=== PATIENT | male | born 1945 | race Caucasian/White ===

== ENCOUNTER 2019-04-15 12:44 | Inpatient (IN) | payer MEDICARE, OTHER ==
[~2019-04-15] VITALS: Ht 170.2 cm; Wt 71.8 kg
[2019-04-15 13:31] LABS: BASOPHILS ABSOLUTE AUTO 0.07 K/mm3 (0.00-0.23); BASOPHILS PERCENT AUTO 1 % (0-2); EOSINOPHILS PERCENT AUTO 0 % (0-6); Hematocrit 42.8 % (37.0-53.0); Hemoglobin 13.5 g/dL (13.5-17.5); IMMATURE GRAN ABSOLUTE AUTO 0.01 K/mm3 (0.00-0.10); IMMATURE GRAN PERCENT AUTO 0 % (0-1); LYMPHOCYTES PERCENT AUTO 15 % (21-46); MONOCYTES ABSOLUTE AUTO 0.61 K/mm3 (0.16-1.47); MONOCYTES PERCENT AUTO 10 % (4-13); Mean Corpuscular HGB 33.2 pg (26.0-34.0); Mean Corpuscular HGB Conc 31.5 g/dL (31.5-36.5); Mean Corpuscular Volume 105 fL (80-100); Mean Platelet Volume 9.9 fL (9.1-12.4); NEUTROPHILS ABSOLUTE AUTO 4.42 K/mm3 (1.96-9.15); NEUTROPHILS PERCENT AUTO 74 % (41-73); Platelet Count 162 K/mm3 (150-400); RDW Coefficient Variation 13.5 % (11.7-14.2); RDW Standard Deviation 53.5 fL (35.1-46.3); Red Blood Cell Count 4.07 M/mm3 (4.30-5.90); White Blood Cell Count 6.01 K/mm3 (4.00-11.30)
[2019-04-15 13:57] LABS: Albumin, Blood 3.7 g/dL (3.4-5.0); Albumin/Globulin Ratio 1.1 (0.8-1.8); Bilirubin, Total 1.3 mg/dL (0.1-1.0); Bun/Creatinine Ratio 20.4 (12.0-20.0); Creatinine, Blood 1.47 mg/dL (0.60-1.20); Globulin, Blood 3.4 g/dL (2.2-4.0); Potassium, Blood 3.9 mmol/L (3.5-5.5); Total Protein, Blood 7.1 g/dL (6.4-8.2); Troponin I 0.018 ng/mL (0.000-0.040)
[2019-04-15 15:52] LABS: International Normalized Ratio 2.65; Prothrombin Time Results 25.7 Sec (9.7-11.5)
[2019-04-15] MEDS ORDERED: Zantac150 MG PO (16:50)
[2019-04-15] MEDS ORDERED: CARDURA4 MG PO (16:50)
[2019-04-15] MEDS ORDERED: DULO30 PO (16:50)
[2019-04-15] MEDS ORDERED: Synthroid88 MCG PO (16:52)
[2019-04-15] MEDS ORDERED: WARF5 PO (16:53)
[2019-04-15 16:54] LABS: Free Thyroxine 1.44 ng/dL (0.70-1.60)
[2019-04-15 16:57] LABS: Thyroid Stimulating Hormone 4.34 uIU/mL (0.360-4.800)
[2019-04-15] MEDS ORDERED: Bisoprolol Fumar5 MG PO (16:57)
--- NOTE | 2019-04-16 03:03 | NUR ---
SHIFT SUMMARY: 73 Y/O RESTED COMFORTABLY SUPINE POSITION (FEELS MOST COMFORTABLY IN THIS POSITION), DENIES PAIN OR NAUSEA, TELEMETRY REFLECTS A/FIB WITH PVC AND HEART RATE 100 PER SHARRON KUMAR, BED LOW POSITION WITH CALL LIGHT AT SIDE.
[2019-04-16 03:55] LABS: Hematocrit 37.5 % (37.0-53.0); Hemoglobin 11.9 g/dL (13.5-17.5); Mean Corpuscular HGB 32.2 pg (26.0-34.0); Mean Corpuscular HGB Conc 31.7 g/dL (31.5-36.5); Mean Platelet Volume 10.4 fL (9.1-12.4); Platelet Count 139 K/mm3 (150-400); RDW Coefficient Variation 13.5 % (11.7-14.2); RDW Standard Deviation 50.7 fL (35.1-46.3); Red Blood Cell Count 3.69 M/mm3 (4.30-5.90); White Blood Cell Count 4.81 K/mm3 (4.00-11.30)
[2019-04-16 03:56] LABS: Mean Corpuscular Volume 102 fL (80-100)
[2019-04-16 04:09] LABS: Bun/Creatinine Ratio 22.4 (12.0-20.0); Calcium, Blood 8.5 mg/dL (8.5-10.1); Creatinine, Blood 1.56 mg/dL (0.60-1.20); International Normalized Ratio 2.88; Potassium, Blood 3.5 mmol/L (3.5-5.5); Prothrombin Time Results 27.7 Sec (9.7-11.5)
--- NOTE | 2019-04-16 08:01 | NUR ---
ASSUMED CARE AT 0330. NO COMPLAINTS NOTED PER TECH 11 BT RUN OF V TACH AT 0545. ASYMTOMATIC AND WAS ASLEEP. AF 90-100 AVERAGE
--- NOTE | 2019-04-16 08:34 | NUR ---
Echocardiogram completed.
--- NOTE | 2019-04-16 13:55 | NUR ---
Upon receiving an admit referral, I visited patient. Patient immediately shares about his health history, his 2 grown children, his family unit complications and his spiritual beliefs. Patient gives me a list of amazing events (almost miraculous) then tells me there is no God and nothing after . Patient shares personal stories of the pain and healing, of addiction and freedom and of seperation and connectiveness. I listen empathically, normalize patient experience, reinforce helpful attitudes and practices and provide companionship. Patient responds well and shows signs of an elevated mood. I will continue to remain available to patient and family.
--- NOTE | 2019-04-16 17:44 | NUR ---
SHIFT SUMMARY PT ALERT AND ORIENTED. VS STAVLE. HR HAS BEEN AFIB 80-100. BP STABLE. PT DENIES ANY CP/PRESSURE OR DIZZINESS. PT INDPENEDENT IN ROOM. METOPROLOL CHANGED TO 50MG BID TODAY. PT DENIES ANY OTHER NEEDS. PT COMPLAINS OF PAIN TO RIGHT SHOULDER AND NECK THAT WAS RELIEVED WITH MEDICAITON ADMINISTRATION. PT SITTING UP EATING DINNER. WILL CONTINUE TO MONITOR AND REPORT TO ONCOMING RN. CALL LIGHT IN REACH.
[2019-04-17 04:19] LABS: International Normalized Ratio 3.5; Prothrombin Time Results 33.1 Sec (9.7-11.5)
--- NOTE | 2019-04-17 05:28 | NUR ---
SHIFT SUMMARY PT SLEEPING IN ROOM COMFORTABLY AT THIS TIME. NO ACUTE CHANGES IN STATUS T/O NIGHT. PT SLEPT WELL, DENIED ANY NEEDS. DENIED ANY CP OR SOB T/O NIGHT. RESP EVEN UNLABORED ON RA W/ SDATS >92%. PT IS INDEPENDENT IN ROOM. BP WAS NOTED TO BE LOW AT STAR OF SHIFT, PT WAS UNSYMPTOMATIC, AND BP HAS SINCE INCREASED. CALL LIGHT IN REACH.
--- NOTE | 2019-04-17 10:18 | NUR ---
AM NOTE. ASSUMED CARE OF PT APROX 0700. PT IS A&Ox4 AND IND IN THE ROOM. PT WAS ADMITTED FOR AFIB RVR. PT'S VS STABLE. DENIES CHEST PAIN/PRESSURE, N/V OR SOB. NO EDEMA NOTED ON ASSESSMENT. PT IS IN AFIB IN THE 80'S-100'S PER CARDIO TECH. WILL CONTINUE TO MONITOR.
--- NOTE | 2019-04-17 17:55 | NUR ---
SHIFT SUMMARY. NO ACUTE CHANGES NOTED THIS SHIFT. PT'S VS HAVE BEEN STABLE. PT DENIES CHEST PAIN/PRESSURE, N/V OR SOB. PT HAS BEEN IND TO THE BATHROOM AND IN THE ROOM. PT HAD A NAP THIS AFTERNOON FOR SEVERAL HOURS. NO EVENTS NOTED ON TELE. CALL LIGHT IN REACH, BED IS LOCKED AND LOW WILL CONTINUE TO MONITOR UNTIL REPORT IS GIVEN TO ONCOMING RN.
--- NOTE | 2019-04-17 18:42 | NUR ---
PT UPDATE... PT STATED THAT HE HAD BEEN REFUSING TO USE THE URINAL TODAY AFTER THIS RN ASKED HIM TO USE IT THIS MORNING. PT STATED HE WAS "EMBARRASSED" TO USE IT. EDUCATION WAS PROVIDED TO THE PT ON THE IMPORTANCE OF STRICT I&O DURING DIURESING. PT STATED HIS UNDERSTANDING AND STATED HE WOULD USE IT "NEXT TIME"
[2019-04-18 05:25] LABS: BASOPHILS ABSOLUTE AUTO 0.07 K/mm3 (0.00-0.23); BASOPHILS PERCENT AUTO 1 % (0-2); EOSINOPHILS PERCENT AUTO 0 % (0-6); Hematocrit 38.8 % (37.0-53.0); Hemoglobin 12.6 g/dL (13.5-17.5); IMMATURE GRAN ABSOLUTE AUTO 0.01 K/mm3 (0.00-0.10); IMMATURE GRAN PERCENT AUTO 0 % (0-1); LYMPHOCYTES ABSOLUTE AUTO 1.23 K/mm3 (0.84-5.20); LYMPHOCYTES PERCENT AUTO 23 % (21-46); MONOCYTES ABSOLUTE AUTO 0.43 K/mm3 (0.16-1.47); MONOCYTES PERCENT AUTO 8 % (4-13); Mean Corpuscular HGB 32.6 pg (26.0-34.0); Mean Corpuscular HGB Conc 32.5 g/dL (31.5-36.5); Mean Corpuscular Volume 101 fL (80-100); NEUTROPHILS ABSOLUTE AUTO 3.52 K/mm3 (1.96-9.15); NEUTROPHILS PERCENT AUTO 67 % (41-73); Platelet Count 124 K/mm3 (150-400); RDW Coefficient Variation 13.3 % (11.7-14.2); RDW Standard Deviation 49.7 fL (35.1-46.3); Red Blood Cell Count 3.86 M/mm3 (4.30-5.90); White Blood Cell Count 5.26 K/mm3 (4.00-11.30)
[2019-04-18 05:40] LABS: International Normalized Ratio 3.07; Prothrombin Time Results 29.4 Sec (9.7-11.5)
[2019-04-18 05:42] LABS: Bun/Creatinine Ratio 28.2 (12.0-20.0); Calcium, Blood 8.7 mg/dL (8.5-10.1); Creatinine, Blood 1.77 mg/dL (0.60-1.20); Potassium, Blood 3.5 mmol/L (3.5-5.5)
--- NOTE | 2019-04-18 06:04 | NUR ---
SHIFT SUMMARY PT SLEEPING IN ROOM COMFORTABLY AT THIS TIME. NO ACUTE CHANGES IN STATUS T/O NIGHT. PT DID HAVE ONE RUN OF 8 BEAT VTACH DURING NIGHT. PT WAS NOTED TO BE SLEEPING SOUNDLY W/ NO SIGNS OF DISTRESS AT TIME OF VTACH. RESP EVEN UNLABORED ON RA W/ SATS >92%. DENIED ANY CP T/O NIGHT. PT INDEPENDENT IN ROOM TO RR. PT WAS STARTED ON DIGOXIN LAST NIGHT GIVEN 2 DOSES TOTAL. DENIED OTHER NEEDS. CALL LIGHT IN REACH.
--- NOTE | 2019-04-18 07:56 | NUR ---
AM NOTE. ASSUMED CARE OF PT APROX 0700. PT IS A&Ox4 AND IND IN THE ROOM. PT'S AFIB HAS BEEN CONTROLLED WITH ORAL MEDICATIONS. CARDIOLOGY PROVIDER AT THE BEDSIDE THIS AM. MEDICATION CHANGES MADE. PT'S VS STABLE. NO EDEMA NOTED ON ASSESSMENT. L/S CELAR T/O. BT PRESENT AND HYPERACITVE, ABD SOFT AND NONTENDER TO PALP. PT STATES THE R SHOULDER PAIN HE HAS BEEN CONROLLED WITH THE ULTRAM. PT DENIES CHEST PAIN/PRESSURE N/V OR SOB AT THIS TIME. CALL LIGHT IN REACH, WILL CONTINUE TO MONITOR.
[2019-04-18] MEDS ORDERED: CARVEDILOL12.5 MG PO (09:32)
[2019-04-18] MEDS ORDERED: LANOXIN125 MCG PO (09:33)
[2019-04-18] MEDS ORDERED: POTA10T PO (09:34)
[2019-04-18] MEDS ORDERED: FURO40 PO (09:34)
[2019-04-18] MEDS ORDERED: ENTRESTO 24 MG1 EACH PO (09:35)
[2019-04-18] MEDS ORDERED: SENN187 PO (09:35)
== END 2019-04-18 09:55 | disposition home or self-care (01) | DRG 308 ==
LOC: ER 12:44 → PCU 16:17
PROVIDERS: Emergency Medicine; Internal Medicine; Physician Assistant; ADMIT Hospitalist
DX: I48.20 Chronic atrial fibrillation, unspecified (principal); I50.23 Acute on chronic systolic (congestive) heart failure; N17.9 Acute kidney failure, unspecified; I13.0 Hypertensive heart and chronic kidney disease with heart failure and stage 1 through stage 4 chronic kidney disease, or unspecified chronic kidney disease; M54.9 Dorsalgia, unspecified; M54.2 Cervicalgia; E78.5 Hyperlipidemia, unspecified; N18.3 Chronic kidney disease, stage 3 (moderate); Z66 Do not resuscitate; E03.9 Hypothyroidism, unspecified; E87.6 Hypokalemia; D69.6 Thrombocytopenia, unspecified; F17.200 Nicotine dependence, unspecified, uncomplicated; K59.00 Constipation, unspecified; K21.9 Gastro-esophageal reflux disease without esophagitis; N40.0 Benign prostatic hyperplasia without lower urinary tract symptoms; F41.9 Anxiety disorder, unspecified; Z95.2 Presence of prosthetic heart valve; Z79.01 Long term (current) use of anticoagulants; Z79.899 Other long term (current) drug therapy
CPT/HCPCS: 36415; 71046; 80048; 80053; 83735; 83880; 84439; 84443; 84484; 85025; 85027; 85610; 85730; 93005; 93010; 93306; 96374; 96375; 99284-25; A9270; A9270-GY; J1160; J1940

== ENCOUNTER 2024-05-18 14:12 | Emergency (ER) | payer MEDICARE, OTHER ==
[~2024-05-18] VITALS: Ht 167.6 cm; Wt 77.1 kg
[~2024-05-18 14:12] MED LIST: AMIODARONE HCL200 MG PO; Bisoprolol Fumar5 MG PO; CARDURA4 MG PO; CARVEDILOL12.5 MG PO; DOXAZOSIN MESYLA4 M2 PO; DULO30 PO; ENTRESTO 24 MG1 EACH PO; FURO40 PO; GABA300 PO; HYDPAM25 PO; LANOXIN125 MCG PO; LOSARTAN POTASS25 M2 PO; MAGNESIUM OXID500 MG PO; POTA10T PO; Prednisone50 MG PO; SENN187 PO; Synthroid88 MCG PO; VALA500 PO; Vitamin B Comple1 EA PO; WARF5 PO; Zantac150 MG PO
[2024-05-18 14:57] LABS: Source, Urine Clean Catch
[2024-05-18 15:02] LABS: BASOPHILS ABSOLUTE AUTO 0.04 K/mm3 (0.00-0.23); BASOPHILS PERCENT AUTO 0 % (0-2); EOSINOPHILS PERCENT AUTO 0 % (0-6); Hematocrit 39.3 % (37.0-53.0); Hemoglobin 13.2 g/dL (13.5-17.5); IMMATURE GRAN ABSOLUTE AUTO 0.05 K/mm3 (0.00-0.10); IMMATURE GRAN PERCENT AUTO 1 % (0-1); LYMPHOCYTES ABSOLUTE AUTO 0.48 K/mm3 (0.84-5.20); LYMPHOCYTES PERCENT AUTO 5 % (21-46); MONOCYTES PERCENT AUTO 7 % (4-13); Mean Corpuscular HGB Conc 33.6 g/dL (31.5-36.5); Mean Corpuscular Volume 95 fL (80-100); Mean Platelet Volume 9.2 fL (9.1-12.4); NEUTROPHILS ABSOLUTE AUTO 8.94 K/mm3 (1.96-9.15); NEUTROPHILS PERCENT AUTO 88 % (41-73); Platelet Count 186 K/mm3 (150-400); RDW Coefficient Variation 12.6 % (11.7-14.2); RDW Standard Deviation 43.9 fL (35.1-46.3); Red Blood Cell Count 4.13 M/mm3 (4.30-5.90); White Blood Cell Count 10.21 K/mm3 (4.00-11.30)
[2024-05-18 15:08] LABS: Appearance, Urine Clear (Clear); Bilirubin, Urine Neg (Neg); Blood, Urine Neg (Neg); Glucose Qualitative, Urine Neg (Neg); Ketones, Urine Neg (Neg); Leukocyte Esterase, Urine Neg (Neg); Nitrite, Urine Neg (Neg); Protein, Urine Neg (Neg); Specific Gravity, Urine 1.005 (1.003-1.022); Urobilinogen, Urine NORM (Normal)
[2024-05-18 15:09] LABS: Color, Urine Pale Yellow (P-Yellow)
[2024-05-18 15:18] LABS: Albumin, Blood 3.8 g/dL (3.4-5.0); Bilirubin, Total 1.2 mg/dL (0.1-1.0); Bun/Creatinine Ratio 17.5 (12.0-20.0); Calcium, Blood 9.4 mg/dL (8.5-10.1); Creatinine, Blood 1.6 mg/dL (0.60-1.20); Potassium, Blood 4.4 mmol/L (3.5-5.5); Total Protein, Blood 7.8 g/dL (6.4-8.2)
[2024-05-18] MEDS ORDERED: Ondansetron HCl 2 MG / ML 2ML Vial IV ONE (16:50)
[2024-05-18] MEDS ORDERED: FentaNYL Citrate 50 MCG/ML 2 ML Injection IV ONE (16:50)
[2024-05-18] MEDS ORDERED: Acetaminophen 325 MG TABLET PO ONE (19:45)
[2024-05-18] MEDS ORDERED: Famotidine 20 MG Tab PO ONE (19:45)
[2024-05-18] MEDS ORDERED: OxyCODONE HCL 5 MG TAB PO ONE (19:45)
[2024-05-18] MEDS ORDERED: Mag Hydrox/AL Hydrox/Simeth 30 ML UDC PO ONE (19:45)
[2024-05-18 20:15] VITALS: BP 98/78
== END 2024-05-18 20:17 | disposition home or self-care (01) ==
LOC: ER 14:12
PROVIDERS: Physician Assistant
DX: R10.11 Right upper quadrant pain (principal); I11.0 Hypertensive heart disease with heart failure; I50.20 Unspecified systolic (congestive) heart failure; E03.9 Hypothyroidism, unspecified; Z95.2 Presence of prosthetic heart valve; Z79.01 Long term (current) use of anticoagulants; Z79.890 Hormone replacement therapy; Z79.899 Other long term (current) drug therapy; Z53.29 Procedure and treatment not carried out because of patient's decision for other reasons
CPT/HCPCS: 74177; 80053; 81003; 83605; 83690; 84484; 85025; 93005; 93010; 96374-59; 96375; 99284-25; A9270; J2405; J3010; Q9967